=== PATIENT | female | born 1975 | race Caucasian/White ===

== ENCOUNTER 2020-04-26 07:38 | Day surgery (SDC) | payer MEDICAID, SELFPAY ==
[2020-04-21 14:54] LABS: ALBUMIN 3.9 g/dL (3.4-5.0); ALKALINE PHOSPHATASE 59 U/L (46-116); ALT/SGPT 19 U/L (14-59); AST/SGOT 20 U/L (15-37); BILIRUBIN TOTAL 0.5 mg/dL (0.20-1.00); CALCIUM 8.8 mg/dL (8.5-10.1); CARBON DIOXIDE 27.3 mmol/L (21-32); CHLORIDE SERUM 101 mmol/L (98-107); CREATININE SERUM 0.7 mg/dL (0.6-1.0); GFR1 > 60 mL/min; GLUCOSE SERUM 100 mg/dL (74-106); POTASSIUM SERUM 3.8 mmol/L (3.5-5.1); SODIUM SERUM 136 mmol/L (136-145); TOTAL PROTEIN, SERUM 7.9 g/dL (6.4-8.2)
[2020-04-21 14:59] LABS: BASOPHIL % 1.8 % (0-2); PLATELET COUNT 345 x10^3mcL (130-400)
[2020-04-21 15:00] LABS: RED CELL DISTRIBUTION WIDTH 14.6 % (11.5-14.5)
[~2020-04-26] VITALS: Ht 154.9 cm; Wt 64.5 kg
[2020-04-26 08:20] VITALS: BP 117/66
[2020-04-26 17:05] VITALS: BP 102/64
== END 2020-04-26 16:00 | disposition home or self-care (01) ==
LOC: DS 07:38 → NM 09:00 → DS 09:00 → OR 11:30 → DS 16:00
PROVIDERS: ATTEND Surgery
DX: C50.211 Malignant neoplasm of upper-inner quadrant of right female breast (principal)
CPT/HCPCS: 88329; 88344; 88361; J0131; J0690; J2175; J2250; J2270; J2405; J2704; J3010; J3490; J7120; Q9968